=== PATIENT | male | born 1950 | race Caucasian/White ===

== ENCOUNTER 2016-08-28 11:26 | Emergency (ER) | payer OTHER ==
[2016-08-28 11:43] VITALS: BP 145/124
[2016-08-28] MEDS ORDERED: Sodium Chloride 0.9% 10 ML Syringe FLUSH PRN (11:51)
[2016-08-28] MEDS ORDERED: Sodium Chloride 0.9% 500 ML IV ONE ×2 (11:54→12:31)
--- NOTE | 2016-08-28 12:01 | EDM.PDOC ---
ED HPI GENERAL MEDICAL PROBLEM - General Chief Complaint: Neurological Problem Stated Complaint: LETHARGIC,WEAK Time Seen by Provider: 08/28/16 11:46 Source of Information: Reports: Patient History Limitations: Reports: No Limitations - History of Present Illness INITIAL COMMENTS - FREE TEXT/NARRATIVE: 66-year-old male presents for evaluation and treatment of lightheadedness, dizziness, diaphoresis and nausea. Reports that symptoms started an hour to an hour and a half prior to arrival in the ER. 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 Reports that he is not having any chest pain or abdominal pain. No syncopal episodes. He states that he is feeling short of breath but this is chronic and has not noticed any change. No recent fevers or cough. Reports swelling in the bilateral legs. No recent leg pain. Patient is from [place]. He has been driving truck. Patient reports past medical history of high cholesterol. He states that his blood pressure is "okay ". States that he used to smoke for about 20 years but quit in 1989. He states that he is a borderline diabetic. Reports that he had an OH 11 years ago in [place], required a double bypass. We have no record of this. Last intake was around 8:30 this morning. He had a subway sandwich for breakfast. No history of A. fib. Patient is reporting some neck pain. He states that he has chronic neck pain. Onset: Today Neck Pain Score (Numeric/FACES): 2 - Related Data Allergies Allergy/AdvReac Type Severity Reaction Status Date / Time No Known Allergies Allergy Verified 08/28/16 11:43 Home Meds: Home Meds Aspirin [Halfprin] 81 mg PO DAILY 08/28/16 [History] Docusate Sodium [Stool Softener] 50 mg PO DAILY 08/28/16 [History] Levothyroxine [Synthroid] 50 mcg PO BID 08/28/16 [History] Multivitamin [Multivitamins] 1 cap PO DAILY 08/28/16 [History] Omeprazole Magnesium [Prilosec Otc] 20 mg PO BID 08/28/16 [History] Ranitidine [Zantac] 150 mg PO DAILY 08/28/16 [History] Simvastatin [Zocor] 20 mg PO DAILY 08/28/16 [History] Venlafaxine [Effexor XR] 2 cap PO BEDTIME 08/28/16 [History] Venlafaxine [Effexor XR] 3 cap PO ACBREAKFAST 08/28/16 [History] Past Medical History Cardiovascular History: Reports: CAD, High Cholesterol, Hypertension, OH, Stents Endocrine/Metabolic History: Reports: Diabetes, Type II - Past Surgical History Cardiovascular Surgical History: Reports: Coronary Artery Bypass Social & Family History - Family History Family Medical History: Noncontributory - Tobacco Use Smoking Status *Q: Never Smoker - Caffeine Use Caffeine Use: Reports: None - Recreational Drug Use Recreational Drug Use: No ED ROS GENERAL - Review of Systems Review Of Systems: See Below Constitutional: Reports: Malaise, Weakness, Diaphoresis. Denies: Fever Respiratory: Reports: Shortness of Breath (chronic, no change). Denies: Cough Cardiovascular: Reports: Chest Pain, Edema (bilateral, no change), Lightheadedness. Denies: Syncope GI/Abdominal: Reports: Nausea. Denies: Abdominal Pain, Vomiting Musculoskeletal: Reports: Neck Pain (chronic, no change). Denies: Leg Pain Neurological: Denies: Syncope ED EXAM, GENERAL - Physical Exam Exam: See Below Exam Limited By: No Limitations General Appearance: Alert, WD/WN, No Apparent Distress, Obese Ears: Normal External Exam Nose: Normal Inspection Throat/Mouth: Normal Inspection, Normal Voice, No Airway Compromise Neck: Normal Inspection Respiratory/Chest: No Respiratory Distress, Lungs Clear, Normal Breath Sounds Cardiovascular: Normal Peripheral Pulses, No Murmur, Irregularly Irregular GI/Abdominal: Soft, Non-Tender Back Exam: Normal Inspection Neurological: Alert, Oriented, Normal Cognition Psychiatric: Normal Affect, Normal Mood Skin Exam: Warm, Dry, Normal Color EKG INTERPRETATION EKG Date: 08/28/16 Time: 11:35 Rhythm: A-Fib Rate (Beats/Min): 103 (rate 90 -150 bpm) [place]: Normal P-Wave: Present QRS: Normal ST-T: Depressed (mild V5 and V5) QT: Normal EKG Interpretation Comments: initial EKG at 11:35 A. fib with a rate of 90-[address] segment depression in V5 and V6. T-wave inversion 1 and aVL. Reviewed by myself Dr. Patrick. repeat EKG at 15:12. Essentially unchanged from earlier EKG at 1135. A. fib with a rate of 75 to [address] depression V4 through V6, T-wave inversion in 1 and aVL. Reviewed by myself and Dr. Patrick. Course - Vital Signs Last Recorded V/S: Last Vital Signs Temp 36.1 C 08/28/16 11:37 Pulse 130 H 08/28/16 11:37 Resp 25 H 08/28/16 11:37 BP 145/124 H 08/28/16 11:37 Pulse Ox 90 L 08/28/16 11:37 Orthostatic Blood Pressure [ 77/43 Standing] Orthostatic Blood Pressure [ 106/65 Sitting] Orthostatic Blood Pressure [ 101/57 Supine] - Orders/Labs/Meds Orders: Active Orders 24 hr Category Date Time Status Cardiac Monitoring [RC] . DIRECTED Care 08/28/16 11:56 Active EKG 12 Lead [EKG Documentation Completion] [RC] STAT Care 08/28/16 11:50 Active EKG 12 Lead [EKG Documentation Completion] [RC] STAT Care 08/28/16 14:55 Active Orthostatic Vital Signs [RC] ASDIRECTED Care 08/28/16 11:54 Active Peripheral IV Care [RC] . DIRECTED Care 08/28/16 11:51 Active Diltiazem 125 mg Med 08/28/16 14:45 Active Sodium Chloride 0.9% [Normal Saline] 100 ml IV TITRATE Sodium Chloride 0.9% [Saline Flush] Med 08/28/16 11:51 Active 10 ml FLUSH ASDIRECTED PRN Peripheral IV Insertion Adult [OM.PC] Routine Oth 08/28/16 11:50 Ordered Medication Orders Diltiazem HCl 125 mg/ Sodium (Chloride) 125 mls @ 10 mls/hr IV TITRATE REBECCA Sodium Chloride (Saline Flush) 10 ml FLUSH ASDIRECTED PRN PRN Reason: Keep Vein Open Last Admin: 08/28/16 12:05 Dose: 10 ml Labs: Laboratory Tests 08/28/16 08/28/16 08/28/16 Range/Units 11:45 11:45 11:45 WBC 10.08 H (4.23-9.07) K/mm3 RBC 5.28 (4.63-6.08) M/mm3 Hgb 16.5 (13.7-17.5) gm/L Hct 47.5 (40.1-51.0) % MCV 90.0 (79.0-92.2) fl MCH 31.3 (25.7-32.2) pg MCHC 34.7 (32.2-35.5) g/dl RDW Std Deviation 42.5 (35.1-43.9) fL Plt Count 223 (163-337) K/mm3 MPV 10.1 (9.4-12.3) fl Neutrophils % (Manual) 48 (40-60) % Band Neutrophils % 1 (0-10) % Lymphocytes % (Manual) 43 H (20-40) % Atypical Lymphs % 0 % Monocytes % (Manual) 7 (2-10) % Eosinophils % (Manual) 1 (0.8-7.0) % Basophils % (Manual) 0 L (0.2-1.2) Platelet Estimate Adequate RBC Morph Comment Normal D-Dimer, Quantitative 0.45 (0.19-0.59) mg/L Sodium 141 (136-145) mEq/L Potassium 4.1 (3.5-5.1) mEq/L Chloride 104 (98-107) mEq/L Carbon Dioxide 29 (21-32) mEq/L Anion Gap 12.1 (5-15) BUN 30 H (7-18) mg/dL Creatinine 1.5 H (0.7-1.3) mg/dL Est Cr Clr Drug Dosing 56.33 mL/min Estimated GFR (MDRD) 47 (>60) mL/min BUN/Creatinine Ratio 20.0 H (14-18) Glucose 155 H (80-115) mg/dL Calcium 9.5 (8.5-10.1) mg/dL Total Bilirubin 1.0 (0.2-1.0) mg/dL AST 47 H (15-37) U/L ALT 64 H (16-63) U/L Alkaline Phosphatase 90 (46-116) U/L Troponin I 0.045 (0.00-0.056) ng/mL B-Natriuretic Peptide (0-100) pg/mL Total Protein 7.9 (6.4-8.2) g/dl Albumin 4.2 (3.4-5.0) g/dl Globulin 3.7 gm/dL Albumin/Globulin Ratio 1.1 (1-2) 08/28/16 08/28/16 Range/Units 11:45 14:10 WBC (4.23-9.07) K/mm3 RBC (4.63-6.08) M/mm3 Hgb (13.7-17.5) gm/L Hct (40.1-51.0) % MCV (79.0-92.2) fl MCH (25.7-32.2) pg MCHC (32.2-35.5) g/dl RDW Std Deviation (35.1-43.9) fL Plt Count (163-337) K/mm3 MPV (9.4-12.3) fl Neutrophils % (Manual) (40-60) % Band Neutrophils % (0-10) % Lymphocytes % (Manual) (20-40) % Atypical Lymphs % % Monocytes % (Manual) (2-10) % Eosinophils % (Manual) (0.8-7.0) % Basophils % (Manual) (0.2-1.2) Platelet Estimate RBC Morph Comment D-Dimer, Quantitative (0.19-0.59) mg/L Sodium (136-145) mEq/L Potassium (3.5-5.1) mEq/L Chloride (98-107) mEq/L Carbon Dioxide (21-32) mEq/L Anion Gap (5-15) BUN (7-18) mg/dL Creatinine (0.7-1.3) mg/dL Est Cr Clr Drug Dosing mL/min Estimated GFR (MDRD) (>60) mL/min BUN/Creatinine Ratio (14-18) Glucose (80-115) mg/dL Calcium (8.5-10.1) mg/dL Total Bilirubin (0.2-1.0) mg/dL AST (15-37) U/L ALT (16-63) U/L Alkaline Phosphatase (46-116) U/L Troponin I 0.331 H* (0.00-0.056) ng/mL B-Natriuretic Peptide 38 (0-100) pg/mL Total Protein (6.4-8.2) g/dl Albumin (3.4-5.0) g/dl Globulin gm/dL Albumin/Globulin Ratio (1-2) Meds: Medications Generic Name Dose Route Start Last Admin Trade Name Freq PRN Reason Stop Dose Admin Diltiazem HCl 125 mg/ Sodium 125 mls @ 10 mls/hr 08/28/16 14:45 Chloride IV TITRATE REBECCA Sodium Chloride 10 ml 08/28/16 11:51 08/28/16 12:05 Saline Flush FLUSH 10 ml ASDIRECTED PRN Administration Keep Vein Open Discontinued Medications Generic Name Dose Route Start Last Admin Trade Name Sukhdev PRN Reason Stop Dose Admin Aspirin 324 mg 08/28/16 14:56 08/28/16 15:05 Aspirin PO 08/28/16 14:57 324 mg ONETIME ONE Administration Diltiazem HCl 5 mg 08/28/16 14:29 08/28/16 14:42 Diltiazem IVPUSH 08/28/16 14:30 5 mg ONETIME ONE Administration Enoxaparin Sodium 176 mg 08/28/16 15:18 08/28/16 15:42 Lovenox SUBCUT 08/28/16 15:19 176 mg ONETIME ONE Administration Sodium Chloride 500 mls @ 500 mls/hr 08/28/16 11:54 08/28/16 12:10 Normal Saline IV 08/28/16 12:53 500 mls/hr ONETIME ONE Administration Sodium Chloride 500 mls @ 500 mls/hr 08/28/16 12:31 08/28/16 13:32 Normal Saline IV 08/28/16 13:30 500 mls/hr ONETIME ONE Administration - Radiology Interpretation Free Text/Narrative:: chest 1 view Comparison: No previous study. Heart is enlarged. Upper mediastinum is normal. Previous sternotomy is seen. Lungs are clear with no acute infiltrates. Bony structures are grossly intact. Impression: 1. Cardiomegaly. Nothing acute is appreciated on portable chest x-ray. - Re-Assessments/Exams Free Text/Narrative Re-Assessment/Exam: 08/28/16 13:33 Labs return. White blood cell count mildly elevated at 10.08, hemoglobin 16.5 and platelets 223. Troponin within normal limits at 0.045. d-dimer within normal limits at 0.45. BNP within normal limits at 38. Sodium 141, potassium 4.1, chloride 104. Anion gap 12.1. Creatinine mildly elevated 1.5. live enzymes midely elevated with an AST is 47, ALT is 64 and alkaline phosphatase is 90. I reviewed the chest x-ray, EKG and lab results with the patient. He is currently receiving fluids. He is very orthostatic. He continues to denies any chest pain. Plan will be to repeat the troponin at around 1400. 08/28/16 15:04 Repeat troponin came back elevated at 0.331. This is up from 0.045 earlier. I discussed this with the patient. He will require transfer to [place]. He is not from here. Has no preference of hospital. Will send him to [facility] in [place]. He has received a 5 mg IV Cardizem bolus and 1 L NS. Heart rate is in the 100s. Continues to deny any pain or worsening of symptoms 08/28/16 15:[address] Luke, hospitalist at [facility] in [place]. He agrees to accept the patient, As long as the repeat EKG does not show any changes. We will give either Lovenox or heparin. Will hold off on the cardizem drip at this point. 08/28/16 15:20 Repeat EKG shows an A. fib rate of 75-125 bpm, mild ST depression in V4 through V6. T-wave inversion in 1 and aVL. Essentially unchanged from EKG at 11:35 AM. Today by myself and Dr. Patrick. Patient will go by ground ambulance to [facility]. Dr. Luke accepting. Departure - Departure Time of Disposition: 15:40 Disposition: DC/Tfer to Acute Hospital 02 Reason for Transfer *Q: Primary PCI Indicated Condition: Serious Clinical Impression: NSTEMI (non-ST elevated myocardial infarction) Referrals: PCP,Not In Area [Primary Care Provider] - Forms: ED Department Discharge Additional Instructions: Patient will go by ground ambulance to [facility]. Dr. Luke accepting. - My Orders Last 24 Hours: My Active Orders 08/28/16 11:50 EKG 12 Lead [EKG Documentation Completion] [RC] STAT Peripheral IV Insertion Adult [OM.PC] Routine 08/28/16 11:51 Peripheral IV Care [RC] . DIRECTED Sodium Chloride 0.9% [Saline Flush] 10 ml FLUSH ASDIRECTED PRN 08/28/16 11:54 Orthostatic Vital Signs [RC] ASDIRECTED 08/28/16 11:56 Cardiac Monitoring [RC] . DIRECTED 08/28/16 14:45 Diltiazem 125 mg Sodium Chloride 0.9% [Normal Saline] 100 ml IV TITRATE 08/28/16 14:55 EKG 12 Lead [EKG Documentation Completion] [RC] STAT - Assessment/Plan Last 24 Hours: My Active Orders 08/28/16 11:50 EKG 12 Lead [EKG Documentation Completion] [RC] STAT Peripheral IV Insertion Adult [OM.PC] Routine 08/28/16 11:51 Peripheral IV Care [RC] . DIRECTED Sodium Chloride 0.9% [Saline Flush] 10 ml FLUSH ASDIRECTED PRN 08/28/16 11:54 Orthostatic Vital Signs [RC] ASDIRECTED 08/28/16 11:56 Cardiac Monitoring [RC] . DIRECTED 08/28/16 14:45 Diltiazem 125 mg Sodium Chloride 0.9% [Normal Saline] 100 ml IV TITRATE 08/28/16 14:55 EKG 12 Lead [EKG Documentation Completion] [RC] STAT
[2016-08-28] MEDS ORDERED: Diltiazem 25 MG/5 ML SDV IVPUSH ONE (14:29)
--- NOTE | 2016-08-28 14:29 | CR ---
Chest: Portable view of the chest was obtained. Comparison: No previous study. Heart is enlarged. Upper mediastinum is normal. Previous sternotomy is seen. Lungs are clear with no acute infiltrates. Bony structures are grossly intact. Impression: 1. Cardiomegaly. Nothing acute is appreciated on portable chest x-ray. Diagnostic code #2
[2016-08-28] MEDS ORDERED: Diltiazem 125 MG in Sodium Chloride 0.9% 100 ML IV SCH (14:45)
[2016-08-28] MEDS ORDERED: Aspirin 81 MG Tab.Chew PO ONE (14:56)
[2016-08-28] MEDS ORDERED: Enoxaparin 150 MG/1 ML Syringe SUBCUT ONE (15:18)
== END 2016-08-28 15:56 ==
LOC: JD.ED 11:26
DX: I21.4 Non-ST elevation (NSTEMI) myocardial infarction (principal); E78.00 Pure hypercholesterolemia, unspecified; I25.10 Atherosclerotic heart disease of native coronary artery without angina pectoris; I10 Essential (primary) hypertension; I25.2 Old myocardial infarction; E11.9 Type 2 diabetes mellitus without complications; Z95.1 Presence of aortocoronary bypass graft; Z79.82 Long term (current) use of aspirin; Z79.899 Other long term (current) drug therapy
CPT/HCPCS: 36415; 71010; 80053; 83880; 84484; 85025; 85379; 93005; 96361; 96372; 96374; 99285; A9270; J1650; J7040; J7050; 99284; J3490